=== PATIENT | female | born 1950 | race Caucasian/White ===

== ENCOUNTER 2020-04-25 14:47 | Day surgery (SDC) | payer MEDICARE, OTHER ==
[2020-04-20 12:57] LABS: BASOPHILS % (AUTO) 0.3 % (0-1); EOSINOPHILS # (AUTO) 0.2 X10'3 (0-0.9); EOSINOPHILS % (AUTO) 2.1 % (0-6); HEMATOCRIT 38.8 % (35.0-45.0); HEMOGLOBIN 13.2 g/dl (12.0-16.0); LYMPHOCYTES # (AUTO) 2.6 X10'3 (1.1-4.8); LYMPHOCYTES % (AUTO) 30.7 % (21-51); MEAN CORPUSCULAR HEMOGLOBIN 31.7 PG (27.0-31.0); MEAN CORPUSCULAR VOLUME 93.2 FL (78-98); MEAN PLATELET VOLUME 7.9 FL (7.4-10.4); MONOCYTES # (AUTO) 0.5 X10'3 (0-0.9); MONOCYTES % (AUTO) 5.9 % (2-12); NEUTROPHILS # (AUTO) 5.2 X10'3 (1.8-7.7); PLATELET COUNT 273 X10'3 (140-440); RED BLOOD COUNT 4.17 X10'6 (4.20-5.60); RED CELL DISTRIBUTION WIDTH 13.1 % (11.5-14.5); WHITE BLOOD COUNT 8.5 X10'3 (4.5-11.0)
[2020-04-20 13:04] LABS: ALBUMIN 3.7 G/DL (3.4-5.0); ANION GAP 7 (8-16); BLOOD UREA NITROGEN 11 MG/DL (7-18); BUN/CREATININE RATIO 14.7 (6.6-38.0); CALCIUM 9.1 MG/DL (8.5-10.1); CHLORIDE 108 MMOL/L (99-107); CREATININE 0.75 MG/DL (0.40-0.90); GLUCOSE 100 MG/DL (70-104); POTASSIUM 3.7 MMOL/L (3.5-5.1); SODIUM 140 MMOL/L (135-145); TOTAL CARBON DIOXIDE 25.5 MMOL/L (24-32); eGFR 77 ML/MIN
[2020-04-20 13:08] LABS: PARTIAL THROMBOPLASTIN TIME 30 SECONDS (22-32)
[2020-04-25] VITALS (9 sets, daily range): BP systolic 111–152; BP diastolic 53–82
[~2020-04-25] VITALS: Ht 170.2 cm; Wt 69.2 kg
[2020-04-25] MEDS ORDERED: normal saline 1,000 ML IV SCH (15:00)
[2020-04-25] MEDS ORDERED: diphenhydrAMINE 25mg capsule PO PRN (15:00)
[2020-04-25] MEDS ORDERED: LORazepam 0.5 MG tablet PO PRN (15:00)
[2020-04-25] MEDS ORDERED: LIDOcaine/PRILOcaine 5gm cream TP ONE (15:10)
[2020-04-25] MEDS ORDERED: LEVO50TA PO (15:16)
[2020-04-25] MEDS ORDERED: AMLO5TAB4 PO (15:16)
[2020-04-25] MEDS ORDERED: MULT-620 PO (15:16)
[2020-04-25] MEDS ORDERED: ATOR40TA PO (15:16)
[2020-04-25] MEDS ORDERED: ASPI-1265 PO (15:16)
[2020-04-25] MEDS ORDERED: INDO50CA96 PO (15:16)
[2020-04-25] MEDS ORDERED: TOP100T PO (15:16)
[2020-04-25] MEDS ORDERED: TRAZ-251 PO (15:16)
[2020-04-25] MEDS ORDERED: METH-603 PO (15:16)
[2020-04-25] MEDS ORDERED: PROM12.512 PO (15:16)
[2020-04-25] MEDS ORDERED: LORA-269 PO (15:16)
[2020-04-25] MEDS ORDERED: HYDR-4353 PO (15:16)
[2020-04-25] MEDS ORDERED: midazolam 2 mg/2 ml injection ONE ×2 (15:41→16:52)
[2020-04-25] MEDS ORDERED: LIDOcaine 1% (10mg/ml)w/preservative injection 20ml MDV ONE (15:41)
[2020-04-25] MEDS ORDERED: iohexol 350 MG/ML 50ML vial IV ONE (15:41)
[2020-04-25] MEDS ORDERED: iohexol 350MG/ML 100ml bottle IV ONE (15:41)
[2020-04-25] MEDS ORDERED: fentaNYL/PF 50MCG/1 ML 2ML syringe ONE (15:41)
[2020-04-25] MEDS ORDERED: verapamil 2.5 mg/ml inj IV ONE (16:46)
[2020-04-25] MEDS ORDERED: nitroGLYCERIN-Tridil 50MG/D5W 250 ML IV ONE (16:47)
[2020-04-25] MEDS ORDERED: heparin 1,000unit/ml 10ml vial 10 ML ONE (16:47)
[2020-04-25] MEDS ORDERED: ondansetron/PF 4mg/2ml inj IV PRN (17:25)
[2020-04-25] MEDS ORDERED: proCHLORperazine 10 MG/2 ml inj IV PRN (17:25)
[2020-04-25] MEDS ORDERED: OXAZEpam 15mg capsule PO PRN (17:25)
== END 2020-04-25 19:45 | disposition home or self-care (01) ==
LOC: SSTAY O 14:47
PROVIDERS: ATTEND Internal Medicine Interventional Cardiology
DX: R94.39 Abnormal result of other cardiovascular function study (principal); I25.10 Atherosclerotic heart disease of native coronary artery without angina pectoris
CPT/HCPCS: 36415; 80048; 85025; 85610; 85730; 93458; 99152; C1769; C1894; J1644; J2001; J2250; J3010; J7030; Q0163; Q9967; 93005; A4620; A5120; A6258; J3490